=== PATIENT | male | born 1985 | race Caucasian/White ===

== ENCOUNTER → 2018-03-12 09:52 | Outpatient (REF) | payer MEDICAID, SELFPAY ==
[2018-03-12 13:15] LABS: BUN 10 mg/dL (7-18); CREATININE 0.83 mg/dL (0.70-1.30); Calcium 9.2 mg/dL (8.5-10.1); Chloride 105 mmol/L (98-107); Glucose 114 mg/dL (70-100); Potassium 4.1 mmol/L (3.5-5.1); Sodium 142 mmol/L (136-145)
== END ==
LOC: NCHCN 09:52
PROVIDERS: PCP Family Medicine; Visit Provider Family Medicine
DX: I10 Essential (primary) hypertension (principal)
CPT/HCPCS: 80048

== ENCOUNTER 2019-03-24 14:32 | Outpatient (REF) | payer MEDICAID, SELFPAY ==
[2019-03-24 19:04] LABS: Anion Gap 12.5 mmol/L (3-11); BUN 13 mg/dL (7-18); CO2 26.5 mmol/L (21.0-32.0); Calcium 9.1 mg/dL (8.5-10.1); Chloride 101 mmol/L (98-107); Glucose 80 mg/dL (70-100); Potassium 3.6 mmol/L (3.5-5.1); Sodium 140 mmol/L (136-145)
== END 2019-03-24 14:52 ==
LOC: NCHCN 14:32
PROVIDERS: PCP Family Medicine; Visit Provider Family Medicine
DX: I10 Essential (primary) hypertension (principal)
CPT/HCPCS: 80048

== ENCOUNTER 2020-03-18 17:42 | Outpatient (REF) | payer MEDICAID, SELFPAY ==
[2020-03-18 21:28] LABS: Anion Gap 10.3 mmol/L (3-11); BUN 11 mg/dL (7-18); CO2 26.7 mmol/L (21.0-32.0); CREATININE 0.92 mg/dL (0.70-1.30); Calcium 10.2 mg/dL (8.5-10.1); Chloride 101 mmol/L (98-107); Glucose 103 mg/dL (74-106); Potassium 4.1 mmol/L (3.5-5.1); Sodium 138 mmol/L (136-145)
== END 2020-03-18 18:02 ==
LOC: NCHCN 17:42
PROVIDERS: PCP Family Medicine; Visit Provider Family Medicine
DX: I10 Essential (primary) hypertension (principal)
CPT/HCPCS: 80048

== ENCOUNTER 2020-06-14 15:07 | Outpatient (REF) | payer MEDICAID, SELFPAY ==
[2020-06-14 19:18] LABS: Albumin 4.4 g/dL (3.4-5.0); Calcium 9.3 mg/dL (8.5-10.1)
== END 2020-06-14 15:27 ==
LOC: NCHCN 15:07
PROVIDERS: PCP Family Medicine; Visit Provider Family Medicine
DX: I10 Essential (primary) hypertension (principal)
CPT/HCPCS: 82040; 82310

== ENCOUNTER 2021-02-20 13:50 | Outpatient (REF) | payer MEDICAID, SELFPAY ==
[2021-02-20 15:51] LABS: Hemoglobin A1C 5.5 % (<5.7)
[2021-02-20 15:52] LABS: Anion Gap 9.6 mmol/L (3-11); BUN 11 mg/dL (7-18); CO2 26.4 mmol/L (21.0-32.0); CREATININE 0.8 mg/dL (0.70-1.30); Calculated LDL 147 mg/dL (<100); Chloride 105 mmol/L (98-107); Cholesterol 211 mg/dL (<200); Glucose 91 mg/dL (74-106); HDL Cholesterol 47 mg/dL (40-60); Potassium 3.8 mmol/L (3.5-5.1); Sodium 141 mmol/L (136-145); Triglyceride 86 mg/dL (<150)
== END 2021-02-20 13:51 | disposition home or self-care (01) ==
LOC: NCHCN 13:50
PROVIDERS: PCP Family Medicine; Visit Provider Family Medicine
DX: Z00.00 Encounter for general adult medical examination without abnormal findings (principal); I10 Essential (primary) hypertension; R73.03 Prediabetes
CPT/HCPCS: 80048; 80061; 83036

== ENCOUNTER 2022-06-05 17:53 | Outpatient (REF) | payer MEDICAID, SELFPAY ==
[2022-06-05 18:46] LABS: Anion Gap 8.6 mmol/L (3-11); BUN 13 mg/dL (7-18); CO2 28.4 mmol/L (21.0-32.0); CREATININE 1.1 mg/dL (0.70-1.30); Calcium 9.2 mg/dL (8.5-10.1); Chloride 106 mmol/L (98-107); Estimated GFR 88.12 (mL/min/1.73m2); Glucose 89 mg/dL (74-106); Potassium 3.7 mmol/L (3.5-5.1); Sodium 143 mmol/L (136-145)
[2022-06-05 18:48] LABS: Hemoglobin A1C 5.2 % (<5.7)
== END 2022-06-05 17:54 | disposition home or self-care (01) ==
LOC: NCHCN 17:53
PROVIDERS: PCP Family Medicine; Visit Provider Family Medicine
DX: I10 Essential (primary) hypertension (principal); R73.03 Prediabetes
CPT/HCPCS: 80048; 83036

== ENCOUNTER 2023-03-10 09:02 | Emergency (ER) | payer MEDICAID, SELFPAY ==
[2023-03-10 09:04] VITALS: BP 137/73; PULSE 68; RESP 16; TEMP 36.8; O2SAT 100
--- NOTE | 2023-03-10 09:26 | ED.GENADUL_ITS ---
Discharge Plan Disposition Patient Disposition: Home Discharge Details Clinical Impression: Contact dermatitis Primary Care Provider: Ramon Conte ED Provider: Jamaal Hilario Home Meds and New Rx's Prescriptions: New clobetasol [Clobex] 0.05 % lotion 1 applic topical BID 14 Days Qty: 118 1RF Rx Instructions: Apply to areas of rash, do not apply cream to face or genitals Continued oxycodone-acetaminophen [Percocet] 1 EACH tablet 1 tab-cap PO Q6H PRN Qty: 60 Rx Instructions: 05/19/15 Pt can take 1-2 Q 6 hours for pain per Dr. Marino. [facility] [place] omeprazole 40 MG capsule,delayed release(DR/EC) 40 mg PO DAILY dextroamphetamine-amphetamine [Adderall XR] 20 MG capsule,extended release 24hr 20 mg PO BID lisinopril 10 MG tablet 10 mg PO DAILY oxycodone-acetaminophen 1 TAB tablet 1 tab PO Q6H PRN PRNQty: 20 0RF ibuprofen 200 MG tablet 400 mg PO PRN PRN amlodipine 10 mg tablet 10 mg PO DAILY Patient Comments: TAKE ONE TABLET BY MOUTH EVERY DAY Discharge Instructions Instructions: Dermatitis (ED) Additional Instructions: Please use the provided medication and apply twice daily. If you have any new or significant worsening of symptoms return the emergency department for re assessment. Please wait at least 1 hour after application but after that point you may use any [id number] medications also help with the itching as needed. If not improving please follow-up with your primary care provider for reassessment Referrals: Ramon Conte [Primary Care Provider] - (As needed for reassessment) Discharge Data Discharge Date/Time-TO BE ENTERED AT DEPARTURE: 03/10/23 10:02 Medical Decision Making Patient presenting the emergency department for chief complaint of poison kym. Has been going on for 4 days. Physical exam consistent with contact dermatitis and suspected poison ykm. Patient placed on high potency steroids. After discussion of diagnosis and plan of care patient has no further needs, questions, or concerns and states clear understanding to return to the emergency department for any worsening symptoms. This documentation was [facility] using [facility] system, please disregard any oddities of phrase or misspellings. HPI General Mode of arrival: ambulatory . Date/Time Provider Initiated Documentation: 03/10/23 09:26 . Limitations to Documentation: no limitations . Information obtained by: patient . History of Present Illness 37 year old M presents to the emergency department with the chief complaint of rash, described as moderate, and is localized to the upper extremity and lower extremity. Patient started experiencing this day(s) (4) and it has been constant. No relieving factors improve symptom(s), No exacerbating factors reported . Patient notes no other symptoms.. Patient did receive the following treatments prior to arrival, other (otc - cream) Related Data Home Medications Medication Instructions Recorded Confirmed omeprazole 40 mg capsule,delayed 40 mg PO DAILY 11/11/13 03/10/23 release dextroamphetamine-amphetamine ER 20 mg PO BID 02/08/14 03/10/23 20 mg 24hr capsule,extend release (Adderall XR) lisinopril 10 mg tablet 10 mg PO DAILY 07/31/14 03/10/23 oxycodone-acetaminophen 5 mg-325 1 tab PO Q6H PRN PRN #20 tabs 05/15/15 05/20/15 mg tablet ibuprofen 200 mg tablet 400 mg PO PRN PRN 05/19/15 05/20/15 oxycodone-acetaminophen 5 mg-325 1 tab-cap PO Q6H PRN #60 tab-caps 05/19/15 05/20/15 mg tablet (Percocet) amlodipine 10 mg tablet 10 mg PO DAILY 03/10/23 03/10/23 clobetasol 0.05 % lotion (Clobex) 1 applic topical BID 2 weeks #118 03/10/23 mL Previous Rx's Medication Instructions Recorded oxycodone-acetaminophen 5 mg-325 1 tab PO Q6H PRN PRN #20 tabs 05/15/15 mg tablet clobetasol 0.05 % lotion (Clobex) 1 applic topical BID 2 weeks #118 03/10/23 mL Allergies Allergy/AdvReac Type Severity Reaction Status Date / Time Sulfa (Sulfonamide Allergy Mild Hives Unverified 07/05/15 10:19 Antibiotics) General Stated Complaint: RashLesion ALLY: 4 Review of Systems Constitutional Constitutional: Denies chills and Denies fever(s) ENT Ears, Nose, Mouth, and Throat: Denies lip swelling, Denies mouth lesions, Denies sore throat, Denies throat swelling and Denies tongue swelling Cardiovascular Cardiovascular: Denies dyspnea Respiratory Respiratory: Denies dyspnea and Denies wheezing Gastrointestinal Gastrointestinal: Denies nausea and Denies vomiting Integumentary/Breasts Skin/Breast: Reports as per HPI, Reports erythema and Reports rash Allergic/Immunologic Allergic/Immunologic: Denies lip swelling, Denies throat swelling, Denies tongue swelling and Denies wheezing PFSH All Active Problems (Updated 03/10/23 @ 09:27 by Jamaal Hilario NP) Contact dermatitis (Acute) Social History Smoking/Tobacco Use Status: Current every day Smoking risk assessment performed?: Yes Drug use: Daily Substance use type: marijuana Details: smokes marijuana Housing: house Do you feel safe at home: Yes Do you feel safe in your relationship?: Yes Exam Const General: cooperative and comfortable Orientation: alert and awake HENMT Head: normal to inspection, normocephalic and atraumatic General nose exam: external nose normal Face and sinus: normal facial exam Mouth: oral mucosae normal and lip normal Resp Effort & Inspection: normal respiratory effort and able to speak in complete sentences Auscultation: clear to auscultation bilaterally Cardio Rate: regular rate Rhythm: regular rhythm Heart Sounds: S1 normal and S2 normal Skin Rashes: rashes noted papules diffuse multiple locations Course Vital Signs Vital signs: Vital Signs Temperature 36.8 C 03/10/23 09:04 Pulse 68 03/10/23 09:04 Respiratory Rate 16 03/10/23 09:04 Blood Pressure 137/73 03/10/23 09:04 Pulse Oximetry 100 03/10/23 09:04 Temperature 36.8 C 03/10/23 09:04 Temperature Source Temporal Artery Scan 03/10/23 09:04 Pulse 68 03/10/23 09:04 Respiratory Rate 16 03/10/23 09:04 Blood Pressure 137/73 03/10/23 09:04 Blood Pressure Position Sitting 03/10/23 09:04 Pulse Oximetry 100 03/10/23 09:04 Pain Level 0 03/10/23 09:04 Comment rash itches 03/10/23 09:04
== END 2023-03-10 10:02 | disposition home or self-care (01) ==
LOC: ER 09:47
PROVIDERS: Emergency Provider Nurse Practitioner Family; PCP Family Medicine
DX: L25.5 Unspecified contact dermatitis due to plants, except food (principal)
CPT/HCPCS: 99282

== ENCOUNTER 2023-03-20 12:40 | Outpatient (REF) | payer MEDICAID, SELFPAY ==
[2023-03-20 17:06] LABS: Abs Immature Grans 0.06 10^3/uL (0.0-0.06); Absolute Basophil Count 0.08 10^3/uL (0.0-0.2); Absolute Eosinophil Count 0.66 10^3/uL (0.0-0.7); Absolute Monocyte Count 0.94 10^3/uL (0.1-0.8); Basophils % 0.7; HGB 16.3 g/dL (13.5-17.5); Immature Grans % 0.5; Lymphocytes % 23.8; MCH 29.2 pg (27.0-33.0); MCHC 35.4 % (32.0-36.0); MCV 82 fL (80-95); MPV 10.5 fL (8.0-11.0); Monocytes % 8.6; Neutrophils % 60.4; Platelet Count 279 10^3/uL (130-400); RBC 5.58 10^6/uL (4.36-5.78); RDW-SD 38.7 fL; WBC 10.94 10^3/uL (4.4-10.8)
[2023-03-20 17:30] LABS: Absolute Neutrophil Count 6.61 10^3/uL (1.2-6.7)
[2023-03-20 17:37] LABS: ALT 48 U/L (16-63); AST 27 U/L (15-37); Albumin 4.8 g/dL (3.4-5.0); Alkaline Phosphatase 72 U/L (46-116); Anion Gap 8.7 mmol/L (3-11); BUN 15 mg/dL (7-18); Bilirubin, Total 0.9 mg/dL (0.2-1.0); CO2 28.3 mmol/L (21.0-32.0); Calcium 9.6 mg/dL (8.5-10.1); Chloride 100 mmol/L (98-107); Estimated GFR 98.18 (mL/min/1.73m2); Glucose 104 mg/dL (74-106); Potassium 3.8 mmol/L (3.5-5.1); Sodium 137 mmol/L (136-145); Total Protein 7.7 g/dL (6.4-8.2)
== END 2023-03-20 12:41 | disposition home or self-care (01) ==
LOC: NCHCN 12:40
PROVIDERS: PCP Family Medicine; Visit Provider Family Medicine
DX: I10 Essential (primary) hypertension (principal); K12.1 Other forms of stomatitis
CPT/HCPCS: 80053; 85025

== ENCOUNTER 2023-05-15 12:42 | Outpatient (REF) | payer MEDICAID, SELFPAY ==
[2023-05-15 15:19] LABS: HCT 44.7 % (40.0-50.0); MCH 29.3 pg (27.0-33.0); MCHC 35.8 % (32.0-36.0); MCV 82 fL (80-95); MPV 9.7 fL (8.0-11.0); Platelet Count 311 10^3/uL (130-400); RBC 5.47 10^6/uL (4.36-5.78); RDW 12.7 % (11.8-14.1); RDW-SD 37.6 fL; WBC 9.89 10^3/uL (4.4-10.8)
[2023-05-15 15:35] LABS: C-Reactive Protein 0.11 mg/dL (0.0-0.3); TSH (W/Ref FT4) 0.93 uIU/mL (0.36-3.74)
[2023-05-15 16:27] LABS: Hemoglobin A1C 5.3 % (<5.7)
== END 2023-05-15 12:43 | disposition home or self-care (01) ==
LOC: NCHCN 12:42
PROVIDERS: PCP Family Medicine; Visit Provider Family Medicine
DX: R61 Generalized hyperhidrosis (principal); R53.83 Other fatigue; R73.03 Prediabetes
CPT/HCPCS: 85027; 83036; 84443; 86140

== ENCOUNTER 2023-05-16 03:37 | Outpatient (CLI) | payer MEDICAID, SELFPAY ==
--- NOTE | 2023-05-16 | DI.RAD_ITS ---
Exam(s) XR CHEST 2V PA LATERAL EXAM: XR CHEST 2V PA LATERAL CLINICAL HISTORY: OCCUPATIONAL EXPOSURE TO DUST 10 YRS PLUS, Z57.2, RT SIDED CHEST DISCOMFORT TECHNIQUE: 2D digital imaging was performed of the chest. Two images were obtained. PA and lateral views were obtained. COMPARISON: CR CHEST 2 VIEWS PA,LAT from 07/31/2014 FINDINGS: MEDIASTINUM: Normal. HEART: Normal. PULMONARY VASCULATURE: Normal. LUNGS: Clear. PLEURAL SPACE: No pleural effusion or pneumothorax. BONE:Within normal limits for the patient's age. OTHER FINDINGS:Normal. IMPRESSION: No acute pulmonary findings. DATA REPOSITORY: RADIATION DOSE DELIVERED:
== END 2023-05-16 03:57 ==
LOC: DI 03:37
PROVIDERS: PCP Family Medicine; Visit Provider Family Medicine
DX: Z57.2 Occupational exposure to dust (principal); R07.1 Chest pain on breathing
CPT/HCPCS: 71046

== ENCOUNTER 2023-05-24 02:42 | Outpatient (CLI) | payer MEDICAID, SELFPAY ==
[2023-05-24] MEDS: Levalbuterol HFA 15 GM INH 4 PUFF IH (11:02)
[2023-05-24] MEDS: Inhaler, Assist Device 1 EACH MC (11:02)
--- NOTE | 2023-05-24 12:45 | W.PFT ---
Date of service: 05/24/23 Time of Service: 09:59 Pulmonary Function Test Result Indications: Occupational exposure Interpretation Spirometry: There is no airflow limitation. No significant bronchodilator response. Lung Volumes: There is air trapping and hyperinflation. Diffusion Capacity: Normal diffusion Airway Pressure: Normal airways resistance Impression Normal pulmonary function with air trapping. This can be seen in emphysema and asthma. Clinical Correlation therefore is recommended.
--- NOTE | 2023-05-24 12:47 | W.PFT ---
Pulmonary Function Test Result Clinical Correlation therefore is recommended.
== END 2023-05-24 02:43 | disposition home or self-care (01) ==
LOC: RT 02:42
PROVIDERS: PCP Family Medicine; Visit Provider Family Medicine
DX: Z57.2 Occupational exposure to dust (principal); J43.9 Emphysema, unspecified
CPT/HCPCS: 94060; 94726; 94729

== ENCOUNTER 2023-08-29 16:30 | Outpatient (REF) | payer MEDICAID, SELFPAY ==
[2023-09-06 15:28] LABS: Amphetamine 202 ng/mL (Cutoff: 25); Amphetamines Interpretation Positive.; MDA (Ecstasy Metabolite) Negative ng/mL (Cutoff: 25); MDMA (Ecstasy) Negative ng/mL (Cutoff: 25); Methamphetamine Negative ng/mL (Cutoff: 25); Phentermine Negative ng/mL (Cutoff: 25); Pseudoephedrine/Ephedrine Negative ng/mL (Cutoff: 25)
== END 2023-08-29 16:31 | disposition home or self-care (01) ==
LOC: NCHCN 16:30
PROVIDERS: PCP Family Medicine; Visit Provider Family Medicine
DX: F90.0 Attention-deficit hyperactivity disorder, predominantly inattentive type (principal)
CPT/HCPCS: 80324

== ENCOUNTER 2024-10-22 15:23 | Outpatient (REF) | payer MEDICAID, SELFPAY ==
[2024-10-22 15:42] LABS: ALT 38 U/L (16-63); AST 23 U/L (15-37); Albumin 4.4 g/dL (3.4-5.0); Alkaline Phosphatase 71 U/L (46-116); Anion Gap 5.4 mmol/L (3-11); BUN 15 mg/dL (7-18); Bilirubin, Total 0.3 mg/dL (0.2-1.0); CO2 29.6 mmol/L (21.0-32.0); CREATININE 0.9 mg/dL (0.70-1.30); Calcium 9.5 mg/dL (8.5-10.1); Calculated LDL 143 mg/dL (<100); Chloride 106 mmol/L (98-107); Cholesterol 230 mg/dL (<200); Estimated GFR 110.04 (mL/min/1.73m2); Glucose 132 mg/dL (74-106); HDL Cholesterol 51 mg/dL (>or=40); Potassium 3.7 mmol/L (3.5-5.1); Sodium 141 mmol/L (136-145); Total Protein 7.1 g/dL (6.4-8.2); Triglyceride 180 mg/dL (<150)
== END 2024-10-22 15:24 | disposition home or self-care (01) ==
LOC: NCHCN 15:23
PROVIDERS: PCP Nurse Practitioner Family; Visit Provider Nurse Practitioner Family
DX: I10 Essential (primary) hypertension (principal); Z13.220 Encounter for screening for lipoid disorders
CPT/HCPCS: 80053; 80061